=== PATIENT | male | born 1995 | race Two or more races ===

== ENCOUNTER 2019-04-05 09:18 | Emergency (ER) | payer OTHER ==
[~2019-04-05] VITALS: Ht 177.8 cm; Wt 65.0 kg
[2019-04-05] MEDS ORDERED: KEPPRA (09:35)
--- NOTE | 2019-04-05 09:35 | NUR ---
BIB [facility] FOR "[place]." PT STATES NAUSEA, VOMITTING, AND HEADACHE. PT STATES HE EXPERIENCED A GLF LAST NIGHT WHILE INTOXICATED AND WAS SEEN AT [facility] AND DISCHARGED THIS MORNING. PT AAO X 4, ETOH ODOR PRESENT, DRESSED IN GOWN AND ATTACHED TO MONITOR. PT VERY POOR HISTORIAN. PT HAS SUPERFICIAL ABRASION TO RIGHT KNEE BUT NO TENDERNESS ON PALPATION. CALL LIGHT WITHIN REACH, SIDERAIL X [address]. PER EMS, FS WAS 55, GIVEN ORAL GLUCOSE, AND RECHECK WAS 58. PT ASYMPTOMATIC AT THIS TIME. MD NOTIFIED AT BEDSIDE WITH PT, PER MD, PROVIDE PT WITH FOOD AND RECHECK WHEN FINISHED EATING. PT GIVEN WARM BLANKET FOR COMFORT AND FOOD PER MD REQUEST.
[2019-04-05] MEDS ORDERED: ACETAMINOPHEN 500 MG TABLET ONE (09:44)
--- NOTE | 2019-04-05 09:47 | NUR ---
PT MEDICATED PER ORDER AND GIVEN ANOTHER WATER PER REQUEST.
--- NOTE | 2019-04-05 09:52 | NUR ---
REPORT GIVEN TO NADEEN LEIJA. CARE TRANSFERRED.
--- NOTE | 2019-04-05 09:52 | NUR ---
PT REPORT FROM NADEEN LYNN. PT CARE TO BE ASSUMED.
--- NOTE | 2019-04-05 09:53 | NUR ---
WATER, OJ, ROBERT CRACKERS & PEANUT BUTTER ON BEDSIDE TABLE; ENCOURAGED ORAL INTAKE. PT UNWILLING TO EAT AT THIS TIME.
[2019-04-05] MEDS ORDERED: ACETAMINOPHEN 500 MG TABLET PO ONE (10:00)
[2019-04-05 10:24] VITALS: BP 106/42
== END 2019-04-05 10:51 | disposition home or self-care (01) ==
LOC: ED 09:35
DX: S00.03XA Contusion of scalp, initial encounter (principal); S80.211A Abrasion, right knee, initial encounter; F17.210 Nicotine dependence, cigarettes, uncomplicated; W18.30XA Fall on same level, unspecified, initial encounter; Y93.89 Activity, other specified; Y92.009 Unspecified place in unspecified non-institutional (private) residence as the place of occurrence of the external cause; Y99.8 Other external cause status
CPT/HCPCS: 82962; 99283